=== PATIENT | female | born 1965 | race Caucasian/White ===

== ENCOUNTER 2020-02-22 11:04 | Emergency (ER) | payer MEDICARE, OTHER ==
[~2020-02-22] VITALS: Ht 162.6 cm; Wt 77.1 kg
[~2020-02-22 11:04] MED LIST: ALPR1TAB2; CARI350T; OXYC1TAB PO; QUET300T1; TEMA30CA23; ZOLP10TA1 PO
[2020-02-22 11:12] VITALS: BP 116/81
--- NOTE | 2020-02-22 11:21 | NUR ---
AMB TO BED 06 WITH 4 WHEEL WALKER
--- NOTE | 2020-02-22 11:28 | NUR ---
FELL 1 WEEK AGO, STATES PAIN AND LUMPY FEELING TO LEFT BREAST/CHEST THAT DEVELOPED AFTER FALL. ALSO LT SHOULDER PAIN AND BL KNEE PAIN S/P FALL. DENIES LOC. AMB WITH 4 WHEEL WALKER. PT DENIES ANY FEVER, CP, SOB, OR COUGH AT THIS TIME; PATIENT STATES PAIN OF 8/10 AT THIS TIME; VSS; PATIENT POSITIONED FOR COMFORT; HOB ELEVATED; BEDRAILS UP X1; BED DOWN. ER MD MADE AWARE OF PT STATUS.
[2020-02-22] MEDS ORDERED: KETOROLAC 30 MG/ML VIAL IM ONE ×2 (11:45→14:40)
--- NOTE | 2020-02-22 11:53 | NUR ---
XRAY AT BEDSIDE
--- NOTE | 2020-02-22 14:53 | NUR ---
APPLIED KESHA WRAP TO BILATERAL KNEE WITHOUT ANY ISSUES
[2020-02-22 14:57] VITALS: BP 137/85
== END 2020-02-22 14:57 | disposition home or self-care (01) ==
LOC: MED 11:04
DX: S20.211A Contusion of right front wall of thorax, initial encounter (principal); S80.02XA Contusion of left knee, initial encounter; S80.01XA Contusion of right knee, initial encounter; I10 Essential (primary) hypertension; Z88.6 Allergy status to analgesic agent; Z79.899 Other long term (current) drug therapy; Z87.828 Personal history of other (healed) physical injury and trauma; Z96.652 Presence of left artificial knee joint; W19.XXXA Unspecified fall, initial encounter; Y93.A6 Activity, grass drills; Y92.89 Other specified places as the place of occurrence of the external cause; Y99.8 Other external cause status
CPT/HCPCS: 71045; 73562; 73700; 96372; 99284; J1885; Q0092

== ENCOUNTER 2020-03-03 23:55 | Observation (INO) | payer OTHER, SELFPAY ==
[~2020-03-03] VITALS: Ht 162.6 cm; Wt 67.6 kg
--- NOTE | 2020-03-04 00:01 | NUR ---
PT MOVED FROM EMS [facility] TO BED 4
[2020-03-04 00:07] VITALS: BP 77/47
[2020-03-04] MEDS ORDERED: NACL 0.9% 1,000 ML IV ONE ×4 (00:33→03:05)
--- NOTE | 2020-03-04 00:41 | NUR ---
LAB AT BEDSIDE
--- NOTE | 2020-03-04 00:43 | NUR ---
EKG PERFORMED AT BEDSIDE
[2020-03-04 00:58] LABS: BASOPHILS % (AUTO) 0.4 % (0.0-2.0); EOSINOPHILS # (AUTO) 0.2 K/uL (0-0.4); EOSINOPHILS % (AUTO) 2.3 % (0.0-4.0); HEMATOCRIT 35.5 % (36-48); HEMOGLOBIN 11.7 g/dL (12.0-16.0); LYMPHOCYTES # (AUTO) 2.3 K/uL (2.5-16.5); LYMPHOCYTES % (AUTO) 31.3 % (20.5-51.1); MEAN CORPUSCULAR HEMOGLOBIN 30 pg (27-31); MEAN CORPUSCULAR HGB CONC 33 g/dL (33-37); MEAN CORPUSCULAR VOLUME 89.6 fL (80-94); MONOCYTES # (AUTO) 0.5 K/uL (0.8-1.0); MONOCYTES % (AUTO) 6.6 % (1.7-9.3); NEUTROPHILS # (AUTO) 4.3 K/uL (1.8-7.7); NEUTROPHILS % (AUTO) 59.4 % (42.2-75.2); PLATELET COUNT (AUTO) 270 K/uL (140-450); RED BLOOD CELL COUNT(AUTO) 3.96 MIL/uL (4.20-5.40); RED CELL DISTRIBUTION WIDTH 13.7 % (11.6-13.7); WHITE BLOOD COUNT (AUTO) 7.3 K/uL (4.8-10.8)
--- NOTE | 2020-03-04 00:58 | NUR ---
54 Y/O FEMALE BIB AMBULANCE C/O ALOC SECONDARY TO UNKOWN PILL INGESTION. PT DOES ENDORSE TAKING AMITRIPTYLINE 75MG, WHICH IS NORMAL DOSE FOR PT. PT APPEARS LETHARGIC AND ONLY ALERT TO VERBAL STIMULI. HYPOTENSIVE PER EMS. PMHX--CHRONIC BACK PAIN
--- NOTE | 2020-03-04 01:00 | NUR ---
PT SLEEPING IN POSITION OF COMFORT, BED LOW AND LOCKED, 2 SIDERAILS UP, VSS, WILL CONTINUE TO MONITOR
--- NOTE | 2020-03-04 01:03 | NUR ---
XRAY AT BEDSIDE
[2020-03-04 01:13] LABS: ALBUMIN 3.1 g/dL (3.4-5.0); ANION GAP 11.4 (8-16); CARBON DIOXIDE 26.4 mmol/L (21-32); CREATININE 1.1 mg/dL (0.6-1.3); POTASSIUM 3.8 mmol/L (3.5-5.1); PROTHROMBIN TIME 10.1 secs (10.8-13.4); TOTAL BILIRUBIN 0.3 mg/dL (0.0-1.0)
--- NOTE | 2020-03-04 01:25 | NUR ---
URINE SAMPLE OBTAINED VIA STRAIGHT CATH AND WALKED TO LAB
[2020-03-04 01:38] LABS: APPEARANCE,URINE CLEAR (CLEAR); BILIRUBIN,URINE NEGATIVE (NEGATIVE); BLOOD, URINE NEGATIVE (NEGATIVE); COLOR,URINE YELLOW (YELLOW); LEUKOCYTE ESTERASE ,URINE NEGATIVE (NEGATIVE); NITRITE, URINE NEGATIVE (NEGATIVE); UGLUCOSE NEGATIVE (NEGATIVE)
[2020-03-04] MEDS ORDERED: LEVOFLOXACIN 500 MG/D5W PREMIX 100 ML IV ONE (01:40)
[2020-03-04] MEDS ORDERED: cefTRIAXone 2,000 MG in DEXTROSE 5% 100 ML IV ONE (01:40)
--- NOTE | 2020-03-04 02:00 | NUR ---
PT SLEEPING IN POSITION OF COMFORT, BED LOW AND LOCKED, 2 SIDERAILS UP, VSS, WILL CONTINUE TO MONITOR
[2020-03-04] MEDS ORDERED: cefTRIAXone 2,000 MG VIAL ONE (02:16)
--- NOTE | 2020-03-04 02:37 | NUR ---
COVID NARE SWAB DONE AND WALKED TO LAB
[2020-03-04 03:09] LABS: BARBITURATE, URINE NEGATIVE ng/ml (NEG <=200)
[2020-03-04 03:10] LABS: BENZODIAZEPINE, URINE POSITIVE ng/mL (NEG <=200); CANNABINOID, URINE NEGATIVE ng/mL (NEG <=50); COCAINE, URINE NEGATIVE ng/mL (NEG <=300); OPIATE, URINE NEGATIVE ng/mL (NEG <=2000); PHENCYCLIDINE SCREEN,URINE NEGATIVE ng/mL (NEG <=25)
--- NOTE | 2020-03-04 03:31 | NUR ---
PT SLEEPING IN POSITION OF COMFORT, BED LOW AND LOCKED, 2 SIDERAILS UP, VSS, WILL CONTINUE TO MONITOR
[2020-03-04] MEDS ORDERED: ONDANSETRON 4 MG/2 ML VIAL IVP PRN (03:40)
[2020-03-04] MEDS ORDERED: ACETAMINOPHEN 325 MG TAB PO PRN (03:40)
--- NOTE | 2020-03-04 04:30 | NUR ---
PT SLEEPING IN POSITION OF COMFORT, BED LOW AND LOCKED, 2 SIDERAILS UP, VSS, WILL CONTINUE TO MONITOR
--- NOTE | 2020-03-04 05:00 | NUR ---
PT AMBULATED TO RESTROOM WITH STEADY GAIT AND MINIMAL ASSISTANCE
[2020-03-04] MEDS ORDERED: GABA300C PO (05:07)
[2020-03-04] MEDS ORDERED: TIZA2CAP PO (05:07)
[2020-03-04] MEDS ORDERED: ELA50 PO (05:08)
--- NOTE | 2020-03-04 05:25 | NUR ---
PT SLEEPING IN POSITION OF COMFORT, BED LOW AND LOCKED, 2 SIDERAILS UP, VSS, WILL CONTINUE TO MONITOR
--- NOTE | 2020-03-04 06:21 | NUR ---
PT SLEEPING IN POSITION OF COMFORT, BED LOW AND LOCKED, 2 SIDERAILS UP, VSS, WILL CONTINUE TO MONITOR
[2020-03-04] MEDS: NACL 0.9% 1,000 ML IV SCH (07:13)
--- NOTE | 2020-03-04 07:26 | NUR ---
Pt report given to jaswant anguiano . Transfer of care at this time.
--- NOTE | 2020-03-04 08:45 | NUR ---
PT WALKED TO RESTROOM. NOT IN ANY DISTRESS.
--- NOTE | 2020-03-04 08:48 | NUR ---
PATIENT HAS BEEN SCREENED AND CATEGORIZED LOW NUTRITION RISK. PATIENT WILL BE SEEN WITHIN 7 DAYS OF ADMISSION. 03/10/[address]
--- NOTE | 2020-03-04 09:37 | NUR ---
PT EATING MEAL AT BEDSIDE
--- NOTE | 2020-03-04 19:14 | NUR ---
REPORT GIVEN TO HAI LEVIN. ALL CARE TRANSFERRED AT THIS TIME.
--- NOTE | 2020-03-04 19:47 | NUR ---
PT RESTING IN BED, REQUESTING PAIN MEDS. VSS, R/R EQUAL, AND UNLABORED. SIDE RAIL X2 BED IN LOW POSITION WILL CONTINUE TO MONITOR.
[2020-03-04] MEDS ORDERED: KETOROLAC 15 MG/ML VIAL IVP STA (19:53)
--- NOTE | 2020-03-04 20:25 | NUR ---
BILATERAL 20 GAUGE IV'S IN RIGHT AND LEFT HAND, ARE NON PATENT. IVF NOT FLOWING THROUGH EITHER SITE. BOTH IV'S REMOVED, AND REPLACED BY RAC 20 GAUGE PATENT IV.
--- NOTE | 2020-03-04 20:35 | NUR ---
PT GIVEN TORADOL 15MG/ML FOR PAIN VIA IV PUSH.
--- NOTE | 2020-03-04 21:37 | NUR ---
PT RESTING QUIETLY IN BED, VSS, R/R EQUAL, AND UNLABORED. SIDE RAIL X2, BED IN LOW POSITIION, WILL CONTINUE TO MONITOR.
--- NOTE | 2020-03-04 22:34 | NUR ---
PT RESTING QUIETLY IN BED, VSS, R/R EQUAL, AND UNLABORED. SIDE RAIL X2, BED IN LOW POSITIION, WILL CONTINUE TO MONITOR.
--- NOTE | 2020-03-04 22:50 | NUR ---
Patient will be admitted to care of DR. HE. Admited to TELE. Will go to room 131. Belongings list completed. Report to HAI REBOLLAR.
[2020-03-04 23:00] VITALS: BP 137/82
--- NOTE | 2020-03-04 23:00 | NUR ---
RECEIVED BEDSIDE REPORT FROM CUPOLA CHARGER. PT IS AAOX4. RESPIRATIONS ARE EQUAL AND UNLABORED ON ROOM AIR. LUNG SOUNDS ARE CLEAR. C/C OD. DX:OVER DOSE. PT NOW R/O COVID AWAITING FOR RESULT. DROPLET PRECAUTIONS. IV ON RAC 20G SL. SKIN IS INTACT. PT WITH BLE EDEMA ONLY R LEG +1 PITTING. MRSA SWAB OBTAINED AND SENT TO LAB. ORIENTED PT TO ROOM, STAFF, AND CALL LIGHT. POC DISCUSSED WITH PT. VSS. CALL LIGHT IS WITHIN REACH. WILL CONTINUE TO MONITOR.
[2020-03-04] MEDS: LORazepam 2 MG/ML VIAL IVP PRN (23:35)
--- NOTE | 2020-03-04 23:35 | NUR ---
VSS. ADMINISTERED PRN ATIVAN FOR ANXIETY. MED EDUCATION GIVEN. ALL NEEDS MET. CALL LIGHT IS WITHIN REACH.
--- NOTE | 2020-03-05 01:11 | NUR ---
PATIENT IS RESTING COMFORTABLY IN BED USING CELLPHONE. NO S/S OF DISTRESS. CALL LIGHT IS WITHIN REACH.
--- NOTE | 2020-03-05 02:12 | NUR ---
MADE ROUNDS. ASSISTED PT TO BATHROOM. PT TOLERATED WELL. ALL NEEDS MET. CALL LIGHT IS WITHIN REACH. WILL CONTINUE TO MONITOR.
[2020-03-05 04:00] VITALS: BP 129/74
--- NOTE | 2020-03-05 04:00 | NUR ---
VITAL SIGNS ARE WITHIN NORMAL LIMITS. ALL SAFETY MEASURES ARE IN PLACE.
[2020-03-05] MEDS: NACL 0.9% 1,000 ML IV SCH (04:50)
[2020-03-05] MEDS ORDERED: KETOROLAC 15 MG/ML VIAL IVP ONE (05:20)
[2020-03-05 06:25] LABS: BASOPHILS % (AUTO) 0.3 % (0.0-2.0); EOSINOPHILS # (AUTO) 0.2 K/uL (0-0.4); EOSINOPHILS % (AUTO) 3.8 % (0.0-4.0); HEMATOCRIT 36.8 % (36-48); HEMOGLOBIN 12.3 g/dL (12.0-16.0); LYMPHOCYTES # (AUTO) 1.7 K/uL (2.5-16.5); LYMPHOCYTES % (AUTO) 36.3 % (20.5-51.1); MEAN CORPUSCULAR HEMOGLOBIN 30 pg (27-31); MEAN CORPUSCULAR HGB CONC 33 g/dL (33-37); MEAN CORPUSCULAR VOLUME 88.2 fL (80-94); MONOCYTES # (AUTO) 0.5 K/uL (0.8-1.0); MONOCYTES % (AUTO) 9.8 % (1.7-9.3); NEUTROPHILS # (AUTO) 2.4 K/uL (1.8-7.7); NEUTROPHILS % (AUTO) 49.8 % (42.2-75.2); PLATELET COUNT (AUTO) 251 K/uL (140-450); RED BLOOD CELL COUNT(AUTO) 4.17 MIL/uL (4.20-5.40); RED CELL DISTRIBUTION WIDTH 13.9 % (11.6-13.7); WHITE BLOOD COUNT (AUTO) 4.8 K/uL (4.8-10.8)
[2020-03-05 07:03] LABS: ALBUMIN 3.1 g/dL (3.4-5.0); ANION GAP 11.6 (8-16); CARBON DIOXIDE 27.4 mmol/L (21-32); CREATININE 0.8 mg/dL (0.6-1.3); TOTAL BILIRUBIN 0.4 mg/dL (0.0-1.0)
--- NOTE | 2020-03-05 07:15 | NUR ---
GAVE BEDSIDE REPORT TO DAY RN. PT ENDORSED IN STABLE CONDITION.
--- NOTE | 2020-03-05 07:20 | NUR ---
RECEIVED REPORT FROM COFOUNDER NURSE. PATIENT IS CURRENTLY AWAKE ALERT AND LAYING IN BED. RESPIRATIONS ARE EVEN AND UNLABORED ON ROOM AIR WITH NO SIGNS OF DISTRESS. SKIN IS INTACT WITH IV ASYMPTOMATIC PATENT AND INFUSING PER ORDER. PT DOES NOT HAVE ANY COMPLAINTS AT THIS TIME. SAFETY MEASURES IN PLACE, CALL LIGHT WITHIN REACH, AND WILL CONTINUE TO MONITOR PLAN OF CARE.
[2020-03-05 08:00] VITALS: BP 153/79
--- NOTE | 2020-03-05 09:02 | NUR ---
DELIVERED BREAKFAST TRAY TO PATIENT. PATIENT IS CURRENTLY AWAKE AND LAYING N BED WITH NO SIGNS OF DISTRESS AT THIS TIME. SAFETY MEASURES IN PLACE AND WILL CONTINUE TO MONITOR.
[2020-03-05] MEDS: LORazepam 2 MG/ML VIAL IVP PRN ×3 (11:05→23:15)
--- NOTE | 2020-03-05 11:17 | NUR ---
PT IS CURRENTLY CRYING AND IS ANXIOUS BECAUSE HER COVID 19 RESULTS ARE NOT BACK YET. PT ASKED IF SHE CAN HAVE HER ATIVAN FOR THE ANXIETY. PT ALSO STATED THAT SHE FEELS NAUSEOUS AND IF THERE IS ANYTHING THAT I CAN GIVE HER. ATIVAN AND ZOFRAN HAVE BEEN ADMINISTERED. SAFETY MEASURES IN PLACE AND WILL CONTINUE TO MONITOR.
[2020-03-05 12:00] VITALS: BP 145/93
--- NOTE | 2020-03-05 13:25 | NUR ---
PATIENTS SISTER CALLED AND ASKED FOR A STATUS UPDATE. PATIENT HAD CALLER HER CRYING STATING THAT SHE IS UNDER INVESTIGATION FOR COVID 19. EXPLAINED TO SISTER AND PATIENT THAT IT IS JUST A PRECAUTIONARY MEASURE AND PATIENT IS CURRENTLY NOT SHOWING ANY SIGNS OR SYMPTOMS. PATIENT IS CURRENTLY LAYING IN BED TALKING IN THE PHONE. SAFETY MEASURES IN PLACE AND WILL CONTINUE TO MONITOR.
--- NOTE | 2020-03-05 15:05 | NUR ---
PT IS CURRENTLY SITTING AT BESIDE AND IS CRYING. PATIENT STATES THAT SHE CANT SLEEP AND HAS IS HAVING TROUBLE WITH HER ANXIETY ESPECIALLY BECAUSE SHE IS UNDER COVID PRECAUTIONS. SAFETY MEASURES IN PLACE AND WILL CONTINUE TO MONITOR.
--- NOTE | 2020-03-05 15:15 | NUR ---
DISCHARGE PLANNING: THIS IS A 64 Y/O FEMALE PATIENT FROM HOME, WHO WAS BROUGHT IN DUE TO ALTERED LEVEL OF CONSCIOUSNESS. INITIAL DIAGNOSIS OF BENZO OVERDOSE. PAST MEDICAL MEDICAL HISTORY INCLUDE HTN AND DEPRESSION. CURRENT LABS INCLUDE WBC 4.8, H/H 12.3/36.8, NA/K 144/3.0, BUN/CREA 8/0.8. UDS POSITIVE FOR BENZO. COVID TEST PENDING. BLOOD CS NO GROWTH AFTER 24 HOURS. URINE AND MRSA PENDING. DC PLAN BACK TO HOME ONCE STABLE. Addendum: 03/06/20 at 1508 by Elin Quinn SCHEDULED PATIENT A POST DISCHARGE APPOINTMENT ON February. THIS WILL BE A TELEPHONE APPT WITH DR. DOVE. WILL NOTIFY PATIENT OF APPT.
[2020-03-05 16:00] VITALS: BP 120/91
--- NOTE | 2020-03-05 16:53 | NUR ---
PATIENT IS CURRENTLY TALKING ON THE PHONE. ATIVAN HAS BEEN ADMINISTERED PER PATIENT REQUEST DUE TO HER ANXIETY ABOUT COVID 19 AND HOSPITAL STAY. SAFETY MEASURES IN PLACE AND WILL CONTINUE TO MONITOR. PLAN OF CARE.
--- NOTE | 2020-03-05 18:24 | NUR ---
PATIENT IS CURRENTLY SITTING UP IN BED WITH NO SIGNS OF DISTRESS. DINNER TRAY HAS BEEN PASSED AND PATIENT ASKED IF SHE CAN HAVE A COKE. SAFETY MEASURES IN PLACE AND WILL CONTINUE TO MONITOR.
[2020-03-05 18:37] VITALS: BP 120/91
--- NOTE | 2020-03-05 19:22 | NUR ---
GAVE REPORT TO AERONAUTICAL INSPECTOR NURSE FOR CONTINUITY OF CARE. PATIENT IS CURRENTLY LAYING IN BED WITH NO SIGNS OF DISTRESS AND IN STABLE CONDITION.
--- NOTE | 2020-03-05 19:22 | NUR ---
RECEIVED PT AAOX4 , NID - O2 SAT WNL - RA , IV SITE INTACT AND PATENT , ON TELE MONITOR . SAFETY MEASURES IN PLACE - CALL LIGHT WITHIN REACH . PLAN OF CARE DISCUSSED AND VERBALIZED UNDERSTANDING . WILL CONT. TO MONITOR . DENIES ANY PAIN . PER AM NURSE THE PT. IS FOR DISCHARGE BUT THE PT REQUESTED SHE WANTS TO DISCHARGE ONCE SHE KNOW THE RESULT OF COVID TEST.
[2020-03-05 20:00] VITALS: BP 125/75
--- NOTE | 2020-03-05 22:00 | NUR ---
PAOLOID TEST (-) - INFORM PT . FOR DISCHARGE , BUT THE PT SAID SHE WANTS TO STAY HERE OVERNIGHT BECAUSE NO ONE WILL CUMULATIVE EFFECTS ANALYST HER . INFORM CHARGE NURSE .
--- NOTE | 2020-03-05 23:00 | NUR ---
PT. SAID SHE WANTS ATIVAN - . PT SHOWING SIGNS OF AGITATION - WILL MEDICATE ORDERED .
--- NOTE | 2020-03-05 23:15 | NUR ---
ATIVAN 0.5 ML GIVEN ORDERED - WILL CONT. TO MONITOR. Addendum: 03/06/20 at 0348 by Melisa Gaming RN PT SAID IF HER AGITATION NOT RESOLVE BY ATIVAN - SHE REQUESTING SLEEPING PILL . WILL CONT. TO MONITOR .
[2020-03-06] VITALS: BP 122/86
--- NOTE | 2020-03-06 00:35 | NUR ---
PT STILL AWAKE AND SHE SAID UNABLE TO SLEEP AND WANTS SLEEPING PILL . WILL CONT. TO MONITOR.
[2020-03-06] MEDS ORDERED: ZOLPIDEM 5 MG TAB PO ONE (01:10)
--- NOTE | 2020-03-06 01:20 | NUR ---
MATTHIAS ADEN - MADE T.O AND CARRIED OUT
--- NOTE | 2020-03-06 01:30 | NUR ---
AMBIEN 5MG /TAB . P.O GIVEN STAT ORDERED - WILL CONT. TO MONITOR - CALL LIGHT WITHIN REACH .
--- NOTE | 2020-03-06 03:30 | NUR ---
SLEEPING - CHEST RISE AND FALL EQUALLY - WILL CONT. TO MONITOR.
[2020-03-06] MEDS: NACL 0.9% 1,000 ML IV SCH (03:40)
[2020-03-06 04:00] VITALS: BP 120/69
--- NOTE | 2020-03-06 09:33 | NUR ---
WAKE UP PATIENT , PATIENT ALERT, ORIENTED, EXPLAINED TO PT NEED TO GO HOME, SHE SAID SHE WILL CALL SOMEBODY, BREAKFAST GIVEN AT THIS TIME, IV DISCONNECTED, NO SOB NOTED AT THIS TIME.
[2020-03-06 09:35] VITALS: BP 129/78
--- NOTE | 2020-03-06 09:39 | NUR ---
PATIENT MAKE A PHONE CALL FOR ELECTRONICS SPECIALIST, EXPLAINED TO PT WILL DO HER DISCHARGE PAPERS
[2020-03-06 09:40] VITALS: BP 157/80
[2020-03-06 09:46] VITALS: BP 129/78
[2020-03-06] MEDS ORDERED: POTASSIUM CHLORIDE 10 MEQ TABER PO SCH (10:15)
--- NOTE | 2020-03-06 10:52 | NUR ---
IVL REMOVE PATIENT WASHING HER FACE, DISCHARGE INSTRUCTION GIVEN, AWARE NEEDED TO FOLLOW UP WITH PRIMARY MD, REFUSED VACCINE AT THIS TIME.
--- NOTE | 2020-03-06 11:09 | NUR ---
DISCHARGE PATIENT TO HOME, WILL WAIT FOR HER RIDE IN THE FRONT LOBBY, WILL BE ASSISTED BY INJECTION MOULDING MACHINE OPERATOR TO THE LOBBY, AYAD QUIGLEY
== END 2020-03-06 11:10 | disposition home or self-care (01) ==
LOC: MED 23:55 → EEVIPCON 23:55 → UNDOADMIN 03-04 05:34 → MTU 03-04 05:34 → INTOOBSV 03-04 05:36 → MMU 03-04 22:09
PROVIDERS: ADMIT Hospitalist; ATTEND Hospitalist
DX: Z03.818 Encounter for observation for suspected exposure to other biological agents ruled out (principal); R55 Syncope and collapse; T48.3X1A Poisoning by antitussives, accidental (unintentional), initial encounter; E86.0 Dehydration; I10 Essential (primary) hypertension; F05 Delirium due to known physiological condition; F32.9 Major depressive disorder, single episode, unspecified; F19.10 Other psychoactive substance abuse, uncomplicated; R41.82 Altered mental status, unspecified; G89.29 Other chronic pain; M54.9 Dorsalgia, unspecified; Z91.81 History of falling; Z79.899 Other long term (current) drug therapy; Z88.5 Allergy status to narcotic agent; X58.XXXA Exposure to other specified factors, initial encounter; Y93.89 Activity, other specified; Y92.89 Other specified places as the place of occurrence of the external cause
CPT/HCPCS: 36415; 36600; 71045; 80053; 80305; 81003; 82803; 83605; 85025; 85610; 85730; 87040; 87081; 87086; 93005; 96361; 96365; 96367; 96375; 96376; 99285; G0378; J0696; J1885; J1956; J2060; J2405; J7030; Q0092; U0003

== ENCOUNTER 2020-04-01 23:33 | Emergency (ER) | payer OTHER, SELFPAY ==
[~2020-04-01] VITALS: Ht 165.1 cm; Wt 81.6 kg
[~2020-04-01 23:33] MED LIST changes: -CARI350T; +ELA50 PO; +GABA300C PO; -OXYC1TAB PO; -QUET300T1; -TEMA30CA23; +TIZA2CAP PO
--- NOTE | 2020-04-01 23:39 | NUR ---
Dr. Tyson examining patient.
[2020-04-01] MEDS ORDERED: NACL 0.9% 1,000 ML IV ONE (23:40)
--- NOTE | 2020-04-01 23:40 | NUR ---
PT CARMEN ALS. TAKEN TO BED 9
[2020-04-01] MEDS ORDERED: FLUMAZENIL 0.5 MG/5 ML VIAL IVP ONE (23:45)
[2020-04-01 23:46] VITALS: BP 79/47
--- NOTE | 2020-04-01 23:50 | NUR ---
PT BIBA ALS FOR C.O ALTERED FROM HOME. PT CONFUSED AND NOT ORIENTED. PT RESPONSIVE TO PAINFUL STIMULI. PT IS WITHDRAWN. EQUAL CHEST RISE AND FALL. NO RESP DISTRESS NOTED. NO USE OF ACCESSORRY MUSCLE. SPO2 93% RA. LUNG SOUNDS CLEAR ALL THROUGHOUT. PT IS SNORING BUT AROUSABLE. GAG REFLEX INTACT. PT SKIN IS COOL TO TOUCH, PALE IN APPEARANCE. PT HAS A HX OF BENZO OVERDOSE. ALLERGIES: UNOBTAINABLE. PMH: UNOBTAINABLE.
--- NOTE | 2020-04-02 00:10 | NUR ---
UA COLLECTED VIA STRAIGHT CATH.
[2020-04-02 00:11] LABS: BASOPHILS % (AUTO) 0.3 % (0.0-2.0); EOSINOPHILS # (AUTO) 0.1 K/uL (0-0.4); EOSINOPHILS % (AUTO) 1.7 % (0.0-4.0); HEMATOCRIT 36.3 % (36-48); HEMOGLOBIN 12.2 g/dL (12.0-16.0); LYMPHOCYTES % (AUTO) 34.9 % (20.5-51.1); MEAN CORPUSCULAR HEMOGLOBIN 30 pg (27-31); MEAN CORPUSCULAR HGB CONC 34 g/dL (33-37); MEAN CORPUSCULAR VOLUME 88.5 fL (80-94); MONOCYTES # (AUTO) 0.6 K/uL (0.8-1.0); MONOCYTES % (AUTO) 9.7 % (1.7-9.3); NEUTROPHILS % (AUTO) 53.4 % (42.2-75.2); PLATELET COUNT (AUTO) 246 K/uL (140-450); RED CELL DISTRIBUTION WIDTH 13.4 % (11.6-13.7); WHITE BLOOD COUNT (AUTO) 5.7 K/uL (4.8-10.8)
--- NOTE | 2020-04-02 00:22 | NUR ---
PT TRANSFER TO CT VIA [facility].
[2020-04-02 00:24] LABS: ALBUMIN 3.3 g/dL (3.4-5.0); ANION GAP 14.5 (8-16); ASPARTATE AMINOTRANSFERASE 101 U/L (15-37); CARBON DIOXIDE 22.2 mmol/L (21-32); CHLORIDE 107 mmol/L (98-107); CREATININE 1.2 mg/dL (0.6-1.3); GFR ARICAN-AMERICAN 60 mL/min (>90); GLUCOSE 159 mg/dL (74-106); POTASSIUM 3.7 mmol/L (3.5-5.1); SODIUM SERUM 140 mmol/L (136-145); TOTAL BILIRUBIN 0.6 mg/dL (0.0-1.0); UREA NITROGEN, BLOOD 18 mg/dL (7-18)
[2020-04-02 00:27] LABS: ACETAMINOPHEN < 0.5 ug/ml (10-30); SALICYLATE < 2.8 mg/dL (2.8-20.0)
[2020-04-02 00:29] LABS: BARBITURATE, URINE NEGATIVE ng/ml (NEG <=200); BENZODIAZEPINE, URINE POSITIVE ng/mL (NEG <=200); CANNABINOID, URINE NEGATIVE ng/mL (NEG <=50); COCAINE, URINE NEGATIVE ng/mL (NEG <=300); OPIATE, URINE NEGATIVE ng/mL (NEG <=2000); PHENCYCLIDINE SCREEN,URINE NEGATIVE ng/mL (NEG <=25)
--- NOTE | 2020-04-02 00:29 | NUR ---
PT RETURN FROM CT
--- NOTE | 2020-04-02 00:46 | NUR ---
MEDS WERE LISTED ON PT MED REC BUT WAS UNABLE TO OBTAIN OR COMFIRM IF MEDS WERE STILL THE SAME D/T PT ALTERED MENTAL STATUS. PRINTED OUT MED REC LIST TO CONFIRM FOR LATER AND PLACED IN PATIENTS CHART BUT OF NOW MEDS ARE UNOBTAINABLE.
--- NOTE | 2020-04-02 00:49 | NUR ---
GAVE REPORT TO HAI STANFORD. TRANSFER OF CARE AT THIS TIME.
--- NOTE | 2020-04-02 01:27 | NUR ---
RECEIVED REPORT FROM HAI STANFORD. CONTINUATION OF CARE AT THIS TIME. SPO2 97% RA. NO RESP DISTRESS NOTED. BP IS NOW 99/66, ELMER NAM AWARE.
--- NOTE | 2020-04-02 02:34 | NUR ---
PT SLEEPING WITH HOB IN A UPRIGHT POSITION. EQUAL CHEST RISE AND FALL. NO DISTRESS NOTED. SPO2 98% RA. BED IN LOWEST POSITION, BED LOCKED IN PLACE, SIDE RAILS X2.
--- NOTE | 2020-04-02 04:30 | NUR ---
PT IS AROUSABLE TO VOICE, ABLE TO ANSWER QUESTIONS AND RESPOND APPROPRIATELY. NO DISTRESS NOTED AT THIS TIME. EQUAL CHEST RISE AND FALL. SPO2 97% RA. A&OX3. VSS.
[2020-04-02] MEDS ORDERED: KETOROLAC 30 MG/ML VIAL IVP ONE (04:35)
--- NOTE | 2020-04-02 04:46 | NUR ---
PT RECEIVED TORADOL 30MG IVP PER ERMD ORDER.
--- NOTE | 2020-04-02 06:32 | NUR ---
PT GAG REFLEX STILL INTACTED. WILL CONT TO MONITOR.
--- NOTE | 2020-04-02 07:06 | NUR ---
Pt report given to HAI BISHOP. Transfer of care at this time.
--- NOTE | 2020-04-02 07:07 | NUR ---
RECEIVED REPORT FROM HAI JACOB AND [facility]
--- NOTE | 2020-04-02 08:58 | NUR ---
PT AWAKES TO VERBAL CUES. ADV PT OF TIME OF DAY. PT STATES THAT SHE IS FEELING BETTER AT THIS TIME. WILL GET PT AWAKE FOR DISCHARGE
--- NOTE | 2020-04-02 09:13 | NUR ---
pt awake and calling for a ride home. adv that we do have a bus pas for her if she needs it.
[2020-04-02 09:52] VITALS: BP 95/47
--- NOTE | 2020-04-02 09:53 | NUR ---
Patient discharged with v/s stable. Written and verbal after care instructions given and explained. Patient verbalized understanding. Ambulatory with steady gait. All questions addressed prior to discharge. Advised to follow up with PMD.
--- NOTE | 2020-04-02 10:34 | NUR ---
Pt requesting to speak to security , advised pt to sit in lobby until security could speak to her. Security made aware
--- NOTE | 2020-04-02 10:34 | NUR ---
PT STATES THAT SHE SHOULD HAVE A WHEELCHAIR AND OTHER BELONINGS THAT SHOULD BE WITH HER AND ARE NOT. I CALLED SECURITY AND THEY ADVISED THERE IS NOTHING THERE FOR HER. ADV PT TO WAIT IN LOBBY AND SECURITY WILL COME TALK TO HER
== END 2020-04-02 09:53 | disposition home or self-care (01) ==
LOC: MED 23:33
DX: R41.82 Altered mental status, unspecified (principal); I95.9 Hypotension, unspecified; Z98.890 Other specified postprocedural states; Z88.5 Allergy status to narcotic agent; Z88.8 Allergy status to other drugs, medicaments and biological substances
CPT/HCPCS: 36415; 70450; 80053; 80305; 85025; 93005; 96361; 96374; 96375; 99285; G0480; G0482; J1885; J3490; J7030; 96372

== ENCOUNTER 2020-04-02 15:47 | Inpatient (IN) | payer OTHER, SELFPAY ==
[~2020-04-02] VITALS: Ht 162.6 cm; Wt 80.7 kg
[2020-04-02 15:55] VITALS: BP 94/57
--- NOTE | 2020-04-02 16:00 | NUR ---
54 yo female biba from home co altered mental status. Pt discharged from [facility] this morning. Pt was found walking around apartment complex. Sister called 911 even though this is the pts baseline.
[2020-04-02] MEDS ORDERED: BLOOD GLUCOSE MONITORING 1 DEV DEV FS ONE (16:10)
--- NOTE | 2020-04-02 16:21 | NUR ---
Spoke to pts daughter-- call for updates [phone]
--- NOTE | 2020-04-02 16:28 | NUR ---
OR FIRST ASSIST REGISTERED NURSE CAME BY TO SPEAK TO PTMarcela JAY OF [employer] AND SUGGESTED A BUS PASS OR TAXI VOUCHER TO GET HOME.
--- NOTE | 2020-04-02 17:45 | NUR ---
PT TAKEN TO CT
[2020-04-02 18:21] LABS: BASOPHILS % (AUTO) 0.2 % (0.0-2.0); EOSINOPHILS # (AUTO) 0.1 K/uL (0-0.4); EOSINOPHILS % (AUTO) 2.4 % (0.0-4.0); HEMATOCRIT 35.1 % (36-48); HEMOGLOBIN 11.6 g/dL (12.0-16.0); LYMPHOCYTES # (AUTO) 1.7 K/uL (2.5-16.5); LYMPHOCYTES % (AUTO) 34.6 % (20.5-51.1); MEAN CORPUSCULAR HEMOGLOBIN 30 pg (27-31); MEAN CORPUSCULAR HGB CONC 33 g/dL (33-37); MEAN CORPUSCULAR VOLUME 89.8 fL (80-94); MONOCYTES # (AUTO) 0.5 K/uL (0.8-1.0); MONOCYTES % (AUTO) 9.7 % (1.7-9.3); NEUTROPHILS # (AUTO) 2.7 K/uL (1.8-7.7); NEUTROPHILS % (AUTO) 53.1 % (42.2-75.2); PLATELET COUNT (AUTO) 227 K/uL (140-450); RED BLOOD CELL COUNT(AUTO) 3.91 MIL/uL (4.20-5.40); RED CELL DISTRIBUTION WIDTH 13.6 % (11.6-13.7)
--- NOTE | 2020-04-02 18:37 | NUR ---
URINE OBTAINED VIA A CATH AND SENT TO LAB PER ORDERS
[2020-04-02 18:42] LABS: ANION GAP 13.3 (8-16); CARBON DIOXIDE 26.6 mmol/L (21-32); CREATININE 1.1 mg/dL (0.6-1.3); POTASSIUM 3.9 mmol/L (3.5-5.1)
[2020-04-02 18:50] LABS: SALICYLATE < 2.8 mg/dL (2.8-20.0)
[2020-04-02 18:51] LABS: ACETAMINOPHEN < 0.5 ug/ml (10-30)
--- NOTE | 2020-04-02 19:09 | NUR ---
REPORT RECEIVED FROM HAI BISHOP FOR CONTINUATION OF CARE.
[2020-04-02 19:13] LABS: BARBITURATE, URINE NEGATIVE ng/ml (NEG <=200); BENZODIAZEPINE, URINE POSITIVE ng/mL (NEG <=200); COCAINE, URINE NEGATIVE ng/mL (NEG <=300)
[2020-04-02 19:14] LABS: CANNABINOID, URINE NEGATIVE ng/mL (NEG <=50); OPIATE, URINE NEGATIVE ng/mL (NEG <=2000); PHENCYCLIDINE SCREEN,URINE NEGATIVE ng/mL (NEG <=25)
[2020-04-02 19:18] LABS: CKMB RELATIVE INDEX 1.1 (0.0-2.5); CREATINE KINASE MB 2.1 ng/mL (0-3.6)
--- NOTE | 2020-04-02 19:46 | NUR ---
PT RESTING IN BED ,LOCKED AND IN LOWEST POSITION, HOB ELEVATED, SIDE RAIL X 2 FOR PT SAFETY. PT AROUSABLE TO VERBAL STIMULATION, VISIBLE RISE AND FALL OF CHEST , RR EVEN AND UNLABORED, VSS.
--- NOTE | 2020-04-02 20:10 | NUR ---
Note alla in ED - 04/02/20 at 2052 by GELA PT GIVEN BELONGINGS AND DC. PT GIVEN TAXI VOUCHER. PT GIVEN RIDE BACK TO [employer].
--- NOTE | 2020-04-02 20:12 | NUR ---
Note alla in ED - 04/02/20 at 205 by GELA Patient discharged with v/s stable. Written and verbal after care instructions given and explained. Patient verbalized understanding. Ambulatory to TAXI . All questions addressed prior to discharge. Advised to follow up with PMD.
[2020-04-02] MEDS ORDERED: CLONIDINE HYDROCHLORIDE 0.1 MG TAB PO PRN (20:15)
[2020-04-02] MEDS ORDERED: MORPHINE SULFATE 2 MG/ML SYR IVP PRN (20:15)
[2020-04-02] MEDS ORDERED: ALUMINUM HYD/MAG/SIMETHICONE 30 ML UDC PO PRN (20:15)
[2020-04-02] MEDS ORDERED: ACETAMINOPHEN 650 MG SUPP RC PRN (20:15)
[2020-04-02] MEDS ORDERED: DOCUSATE SODIUM 250 MG GELCAP PO PRN (20:15)
[2020-04-02] MEDS ORDERED: diphenhydrAMINE 50 MG/ML VIAL IVP PRN (20:15)
[2020-04-02] MEDS ORDERED: bisacodyL 10 MG SUPP RC PRN (20:15)
[2020-04-02] MEDS ORDERED: ONDANSETRON 4 MG/2 ML VIAL IVP PRN (20:15)
[2020-04-02] MEDS ORDERED: POTASSIUM CHLORIDE 10 MEQ TABER PO PRN (20:15)
[2020-04-02] MEDS ORDERED: SODIUM PHOSPHATE 118 ML ENEM RC PRN (20:15)
[2020-04-02] MEDS ORDERED: MAG SULF 2000 MG/WATER PREMIX 50 ML IV PRN (20:15)
[2020-04-02] MEDS ORDERED: MAGNESIUM OXIDE 400 MG TAB PO PRN (20:15)
[2020-04-02] MEDS ORDERED: ACETAMINOPHEN 325 MG TAB PO PRN (20:15)
[2020-04-02] MEDS ORDERED: ALBUTEROL 0.083% 2.5 MG/3 ML NEBU INH PRN (20:15)
[2020-04-02] MEDS ORDERED: HYDROcodone/APAP 5/325 MG 1 TAB TAB PO PRN ×2 (20:15)
[2020-04-02] MEDS ORDERED: IPRATROPIUM 0.02% 0.5 MG/2.5 ML NEBU INH PRN (20:15)
[2020-04-02] MEDS ORDERED: guaiFENesin DM 200/20 MG-10 ML 10 ML UDC PO PRN (20:15)
--- NOTE | 2020-04-02 20:50 | NUR ---
RECEIVED REPORT FROM ED NURSE. PATIENT IS A/OX 3, RESPIRATIONS EVEN AND UNLABORED, LUNGS SOUNDS ARE CLEAR, SKIN IS DRY AND INTACT, LEFT FOREARM IV, INFUSING NS AT 75ML, ACTIVE BOWEL TONES THROUGHOUT, VITALS ARE WITHIN NORMAL LIMITS, ORIENTED PATIENT TO ROOM, CALL LIGHT, AND STAFF, MRSA SCREEN COMPLETE, FALL SIGN POSTED, WRIST BAND ATTACHED, SAFETY PRECAUTIONS IN PLACE. WILL CONTINUE TO MONITOR.
--- NOTE | 2020-04-02 20:50 | NUR ---
Patient will be admitted to care of DR. GALVIN. Admited to TELEMETRY. Will go to room 110A. Belongings list completed. Report to HAI MARTINEZ.
[2020-04-02 21:16] LABS: APPEARANCE,URINE SL CLOUDY (CLEAR); BILIRUBIN,URINE 1+ (NEGATIVE); BLOOD, URINE NEGATIVE (NEGATIVE); COLOR,URINE ORANGE (YELLOW); LEUKOCYTE ESTERASE ,URINE NEGATIVE (NEGATIVE); NITRITE, URINE NEGATIVE (NEGATIVE); UGLUCOSE NEGATIVE (NEGATIVE)
--- NOTE | 2020-04-02 23:00 | NUR ---
PATIENT IS IN STABLE CONDITION AND SLEEPING. WILL CONTINUE TO MONITOR,
[2020-04-03] MEDS: KETOROLAC 30 MG/ML VIAL IVP PRN ×3 (00:47→22:07)
--- NOTE | 2020-04-03 01:20 | NUR ---
PATIENT IS SLEEPING. VISIBLE CHEST RISE NOTED. WILL CONTINUE TO MONITOR.
[2020-04-03 04:00] VITALS: BP 134/69
--- NOTE | 2020-04-03 05:01 | NUR ---
PATIENT IS SLEEPING. NO SIGNS OF DISTRESS NOTED.
--- NOTE | 2020-04-03 07:25 | NUR ---
PATIENT IS IN STABLE CONDITION. ENDORSED CARE TO AM NURSE.
--- NOTE | 2020-04-03 07:35 | NUR ---
SHIFT REPORT RECEIVED FROM HOSIERY OPERATOR NURSE. PT IS SLEEPING IN BED AT THIS TIME. NO DISTRESS NOTED. IV IN PLACE. BED IN LOW POSITION. CALL LIGHT IN REACH. WILL CONTINUE TO MONITOR.
[2020-04-03 08:00] VITALS: BP 110/71
--- NOTE | 2020-04-03 09:00 | NUR ---
PT IS RESTING IN BED. PT IS RESPONSIVE TO NAME. PT SAYS SHE IS HAVING HEADACHE BUT PAIN TOLERABLE. IV IN PLACE AND FLUSHING. NO DISTRESS NOTED AT THIS TIME. BED IN LOW POSITION. CALL LIGHT IN REACH
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
--- NOTE | 2020-04-03 11:36 | NUR ---
DC PLANNIN YRS OLD FEMALE PATIENT WAS ADMITTED FROM HOME WITH A DX OF ALOC. PT HAS A HX OF CHRONIC BACK PAIN, AND OBESITY, POSITIVE FOR BENZODIAZEPINES. CT HEAD NEGATIVE . CONTINUE WITH HOME MEDS. DC PLAN TO GO HOME WHEN STABLE CM TO FOLLOW. Addendum: 04/04/20 at 1200 by Manjula Corrales CM DC PLANNING: PER RN NOTED PATIENT A/OX4 AMBULATORY VITALS STABLE. POSSIBLE FOR DISCHARGE HOME AWAITING FOR MD ROUNDS .
[2020-04-03 12:00] VITALS: BP 135/75
--- NOTE | 2020-04-03 12:00 | NUR ---
PT IS AWAKE AND RESPONSIVE. NO DISTRESS NOTED. PT SAYS SHE IS BODY PAIN BUT PAIN TOLERABLE. PT WAS ABLE TO STAND WITH ASSISTANCE. BED IN LOW POSITION. CALL LIGHT IN REACH.
--- NOTE | 2020-04-03 15:08 | NUR ---
PT IS LYING IN BED .PT ASKS FOR PAIN MEDS ONLY WHEN THE NURSE COMES IN. PT IS OTHERWISE AWAKE AND RESPONSIVE. WILL CONTINUE TO MONITOR. CALL LIGHT IN REACH.
[2020-04-03 16:00] VITALS: BP 140/91
[2020-04-03] MEDS: LORazepam 2 MG/ML VIAL IVP PRN (16:50)
--- NOTE | 2020-04-03 17:54 | NUR ---
PT IS TALKING TO FAMILY OVER PHONE. NOTED WITH HR AT 109. PT WAS EARLIER SEEN CRYING. WHEN ASKED PT SAID THAT SHE IS SAD AND WANTED ATIVAN. ATIVAN 0.25 ML GIVEN. WILL CONTINUE TO MONITOR. CALL LIGHT IN REACH.
--- NOTE | 2020-04-03 19:25 | NUR ---
SHIFT REPORT GIVEN TO AERIAL PHOTOGRAPHER NURSE. PT IS STABLE.
--- NOTE | 2020-04-03 19:30 | NUR ---
RECEIVED PT FROM DAY SHIFT NURSE PT IS AAOX4 AMBULATORY WITH; PRINT DEVELOPER IV ON LEFT HAND INFUSING WELL ON TELEMETRY ST INITIAL ASSESSMENT DONE
[2020-04-03 20:00] VITALS: BP 137/96
[2020-04-03] MEDS: ZOLPIDEM 5 MG TAB PO PRN (21:51)
--- NOTE | 2020-04-03 22:30 | NUR ---
AFTER PAIN MEDIC GIVEN PT DENIES ANY PAIN AND PT IS ASISTED TO THE RESTROOM VO;IDING WELL
[2020-04-04] VITALS: BP 110/80
--- NOTE | 2020-04-04 02:00 | NUR ---
PT REPOSITIONED SLEEPING WELL NOT IDTRESS NOTED ON TELE SR
[2020-04-04 04:00] VITALS: BP 99/50
--- NOTE | 2020-04-04 05:00 | NUR ---
SPONGE BATH GIVENLINEN CHANGED IV TKO ONLEFT HAND , ON TEL SR REMAIN STABLE
[2020-04-04] MEDS: KETOROLAC 30 MG/ML VIAL IVP PRN ×3 (06:44→23:51)
--- NOTE | 2020-04-04 06:46 | NUR ---
PT WILL BE ENDORSED TODAY SHIFT NURSE FOR CONTINUE OF CARE
--- NOTE | 2020-04-04 07:30 | NUR ---
Received report from PM RN. Pt sleeping, arousable to name, AOx4, speech clear, PERRLA, reports feeling sleepy due to not having enough sleep last night. Denies visual changes/sensation changes/one-sided weakness. Denies headache, CP/SOB. All extremities with normal strength and equal. Pt c/o mild tolerable lower back pain radiating to BLE, no deformity/bruising/erythema noted. All needs met.
[2020-04-04 08:00] VITALS: BP 96/52
--- NOTE | 2020-04-04 08:53 | NUR ---
PATIENT HAS BEEN SCREENED AND CATEGORIZED LOW NUTRITION RISK. PATIENT WILL BE SEEN WITHIN 7 DAYS OF ADMISSION. 04/09/[address]
[2020-04-04 12:00] VITALS: BP 109/72
--- NOTE | 2020-04-04 12:28 | NUR ---
Pt sleeping, arousable to name, AOx4, speech clear, skin normal color warm and dry, rr even and unlabored. Denies headache, CP/SOB. All needs met.
[2020-04-04 16:00] VITALS: BP 137/83
--- NOTE | 2020-04-04 16:00 | NUR ---
Pt laying in bed, awake and alert, AOx4, speech clear, GCS 15, PERRLA, skin normal color warm and dry, rr even and unlabored. Reports tolerable BLE pain at this time. All needs met.
--- NOTE | 2020-04-04 17:17 | NUR ---
Received call from pt's daughter Ny with pt's permission to discuss all medical info. Confirmed that Ny is able to black pickler patient for discharge tomorrow at 1500, but is also requesting for bus pass to pt's sister's house if Ny cannot black pickler pt tomorrow.
[2020-04-04] MEDS: LORazepam 2 MG/ML VIAL IVP PRN (17:23)
--- NOTE | 2020-04-04 19:20 | NUR ---
Transfer plan of care to Stacia VALLES
[2020-04-04 20:00] VITALS: BP 111/83
--- NOTE | 2020-04-04 20:00 | NUR ---
NO DISTRESS REPORTED/OBSERVED. IV INTACT/PATENT. WILL CONT TO MONITOR PT STATUS.
[2020-04-05] VITALS: BP 120/81
[2020-04-05] MEDS: ZOLPIDEM 5 MG TAB PO PRN
--- NOTE | 2020-04-05 | NUR ---
MED FOR BACK PAIN W/ TORADOL 30MG IVP W/ GOOD EFFECT NOTED. MED FOR SLEEP WITH AMBIEN PO. IV INTACT/PATENT. WILL CONT TO MONITOR PT STATUS.
[2020-04-05 04:00] VITALS: BP 115/75
--- NOTE | 2020-04-05 07:10 | NUR ---
RECEIVED REPORT FROM CROP OR LIVESTOCK TENANT FARMER NURSE FOR CONTINUITY OF CARE. PATIENT SLEEPING IN BED RIGHT LATERAL POSITION. BREATHING EVEN AND UNLABORED. NO ACUTE DISTRESS NOTED. SAFETY MEASURES IN PLACE. WILL CONTINUE TO MONITOR THE PATIENT.
[2020-04-05 08:00] VITALS: BP 139/71
--- NOTE | 2020-04-05 09:10 | NUR ---
PATIENT RESTING IN BED, DENIES SOB OR RESPIRATORY DISTRESS. SAFETY MEASURES IN PLACE. WILL CONTINUE TO MONITOR.
[2020-04-05] MEDS: KETOROLAC 30 MG/ML VIAL IVP PRN (10:36)
--- NOTE | 2020-04-05 10:36 | NUR ---
PAIN MED TORADOL 30MG/1ML VIA IV PUSH GIVEN FOR BACK, SHOULDERS, LEGS PAIN. PER PATIENT'S REQUESTS. PAIN LEVEL WAS 8/10. EDUCATION PROVIDED. PATIENT TOLERATED WELL. SAFETY MEASURES IN PLACE. WILL CONTINUE TO MONITOR.
--- NOTE | 2020-04-05 11:30 | NUR ---
PATIENT'S PAIN LEVEL DECREASED TO 1/10. PATIENT RESTING IN BED WITH NO DISTRESS, WILL CONTINUE TO MONITOR.
--- NOTE | 2020-04-05 13:20 | NUR ---
PATIENT RESTING IN BED, TALKING OVER THE PHONE, WITH NO ACUTE DISTRESS NOTED, WILL CONTINUE TO MONITOR.
[2020-04-05 16:00] VITALS: BP 135/94
--- NOTE | 2020-04-05 16:06 | NUR ---
PATIENT SUPPOSED TO BE DISCHARGE TODAY. HOWEVER, NO ONE IS ABLE TO [employer] TUTOR THE PATIENT. SN CALLED PATIENT'S DAUGHTER MARIOLA, SHE IS ON VACATION. LEFT VOICE MESSAGE TO PT'S ANOTHER DAUGHTER JOCELYN, WITH NO CALL BACK. CONTACTED PATIENT'S SISTER THU [phone], WITH NO ANSWERS, LEFT VOICE MESSAGE WITH NO RESPONSE. SO HOLD DISCHARGE FOR NOW.
[2020-04-05] MEDS: LORazepam 2 MG/ML VIAL IVP PRN (16:49)
--- NOTE | 2020-04-05 16:49 | NUR ---
PATIENT IS ANXIOUS AND HANDS ARE SHAKY DUE TO THE NERVOUSNESS. ADMINISTERED 0.5MG OF ATIVAN VIA IVP, PER PATIENT'S REQUESTS. PATIENT TOLERATED WELL. WILL CONTINUE TO MONITOR.
--- NOTE | 2020-04-05 17:25 | NUR ---
PATIENT IS CALM. PER PATIENT, SHE IS GOING TO HER SISTER LARRY'S HOME. HER ROOMMATE'S DAUGHTER WILL GIVE HER A RIDE. DISCHARGE PAPER SIGNED, PATIENT TOOK HER BELONGINGS. IV DISCONNECTED. PATIENT IS READY TO GO WHENEVER THE RIDE IS HERE.
--- NOTE | 2020-04-05 17:45 | NUR ---
DISCHARGED THE PATIENT, [facility]. PATIENT'S ROOMMATE'S DAUGHTER GAVE HER A RIDE TO PT'S SISTER THU'S HOUSE.
== END 2020-04-05 17:50 | disposition home or self-care (01) | DRG 812 ==
LOC: MED 15:47 → UNDOADMIN 20:10 → EEVIPCON 20:10 → MTU 20:10 → OBSVTOIN 04-04 15:08
PROVIDERS: ADMIT Internal Medicine Pulmonary Disease; ATTEND Internal Medicine Pulmonary Disease
DX: T42.4X1A Poisoning by benzodiazepines, accidental (unintentional), initial encounter (principal); E66.9 Obesity, unspecified; G89.29 Other chronic pain; G92 Toxic encephalopathy; M54.9 Dorsalgia, unspecified; Z88.5 Allergy status to narcotic agent; Z88.8 Allergy status to other drugs, medicaments and biological substances; Y92.89 Other specified places as the place of occurrence of the external cause; Z68.30 Body mass index [BMI] 30.0-30.9, adult
CPT/HCPCS: 99285; G0378; 36415; 70450; 80048; 80305; 81003; 82140; 82550; 82553; 84484; 85025; 87081; 93005; 97112; 97116; 97161-GP; 97530; G0480; G0482; J1885; J2060; J7030

== ENCOUNTER 2024-06-22 19:18 | Emergency (ER) | payer OTHER ==
[~2024-06-22] VITALS: Ht 162.6 cm; Wt 90.7 kg
[~2024-06-22 19:18] MED LIST changes: -ALPR1TAB2; -ELA50 PO; -GABA300C PO; +LEVO-481 PO; -TIZA2CAP PO; -ZOLP10TA1 PO
[2024-06-22 20:01] VITALS: BP 102/82; PULSE 95; RESP 18; TEMP 98.4; O2SAT 95
[2024-06-22] MEDS: KETOROLAC 60 MG/2 ML VIAL IM ONE (21:34)
[2024-06-22 21:47] LABS: BASOPHILS % (AUTO) 0.2 % (0.0-2.0); EOSINOPHILS # (AUTO) 0.1 K/uL (0-0.4); EOSINOPHILS % (AUTO) 1.6 % (0.0-4.0); HEMATOCRIT 39.1 % (36-48); LYMPHOCYTES % (AUTO) 28.9 % (20.5-51.1); MEAN CORPUSCULAR HEMOGLOBIN 30 pg (27-31); MEAN CORPUSCULAR HGB CONC 33 g/dL (33-37); MEAN CORPUSCULAR VOLUME 90.8 fL (80-94); MONOCYTES # (AUTO) 0.5 K/uL (0.8-1.0); MONOCYTES % (AUTO) 6.6 % (1.7-9.3); NEUTROPHILS # (AUTO) 4.4 K/uL (1.8-7.7); NEUTROPHILS % (AUTO) 62.7 % (42.2-75.2); PLATELET COUNT (AUTO) 240 K/uL (140-450); RED BLOOD CELL COUNT(AUTO) 4.31 MIL/uL (4.20-5.40); WHITE BLOOD COUNT (AUTO) 7.1 K/uL (4.8-10.8)
[2024-06-22 22:07] LABS: ALBUMIN 3.5 g/dL (3.4-5.0); ANION GAP 10.8 (8-16); CALCIUM 9.2 mg/dL (8.5-10.1); CARBON DIOXIDE 30.4 mmol/L (21-32); POTASSIUM 4.2 mmol/L (3.5-5.1); TOTAL BILIRUBIN 0.2 mg/dL (0.0-1.0); TOTAL PROTEIN, SERUM 7.5 g/dL (6.4-8.2)
[2024-06-22] MEDS ORDERED: CELE100C PO (23:33)
== END 2024-06-23 00:23 | disposition home or self-care (01) ==
LOC: MED 19:18
DX: S83.91XA Sprain of unspecified site of right knee, initial encounter (principal); R14.0 Abdominal distension (gaseous); Z98.890 Other specified postprocedural states; Z79.899 Other long term (current) drug therapy; Z88.5 Allergy status to narcotic agent; W18.39XA Other fall on same level, initial encounter; Y92.89 Other specified places as the place of occurrence of the external cause; Y93.89 Activity, other specified; Y99.8 Other external cause status
CPT/HCPCS: 36415; 73562; 74176; 80053; 83880; 85025; 96372; 99285; J1885